=== PATIENT | male | born 1975 | race Hispanic/Latino ===

== ENCOUNTER 2019-07-19 16:08 | Observation (INO) | payer SELFPAY ==
--- NOTE | 2019-07-19 16:28 | RAD ---
2 view chest: [07/19/2019] Comparison:08/29/2015 HISTORY: Epigastric pain FINDINGS: Heart and mediastinal contours are grossly unremarkable. No pneumothorax or pleural fluid. No focal consolidation or alveolar edema. IMPRESSION: No acute findings.
[2019-07-19 17:09] LABS: #Lymphocytes 0.9 thou/uL (1.20-3.40); #Monocytes 0.5 thou/uL (0.11-0.59); #Neutrophils 4.7 thou/uL (1.40-6.50); %Basophils 0.7 % (0.0-1.0); %Eosinophils 0.3 % (0.0-10.0); %Lymphocytes 14.8 % (21.0-51.0); %Monocytes 7.6 % (0.0-10.0); %Neutrophils 76.6 % (42.0-75.0); Hemoglobin 14.3 g/dL (14.0-18.0); Mean Corpuscular HGB CONC 35.7 g/dL (32.0-36.0); Mean Corpuscular Hemoglobin 31.9 pg (27.0-31.0); Mean Corpuscular Volume 89.5 fL (78.0-98.0); Mean Platelet Volume 7.5 fL (7.4-10.4); Platelet Count 286 thou/uL (130-400); RBC Distribution Width 11.1 % (11.5-14.5); Red Blood Cell (RBC) Count 4.48 mill/uL (4.70-6.10); White Blood Cell (WBC) Count 6.1 thou/uL (4.8-10.8)
[2019-07-19 17:30] LABS: ALT (SGPT) 77 U/L (8-55); AST (SGOT) 75 U/L (5-34); Albumin 4.5 g/dL (3.5-5.0); Alkaline Phosphatase 94 U/L (40-110); Anion Gap 17 mmol/L (10-20); BUN (Urea Nitrogen) 6 mg/dL (8.9-20.6); Bilirubin, Total 0.5 mg/dL (0.2-1.2); CK (CPK) 1466 U/L (30-200); Calc. Creatinine Clearance 0 mL/min (70-130); Calcium 8.6 mg/dL (7.8-10.44); Carbon Dioxide 23 mmol/L (22-29); Chloride 92 mmol/L (98-107); Estimated GFR-MDRD Greater than 90; Globulin 2.6 g/dL (2.4-3.5); Glucose 124 mg/dL (70-105); Lipase 10 U/L (8-78); Potassium 3.2 mmol/L (3.5-5.1); Protein, Total 7.1 g/dL (6.0-8.3); Sodium 129 mmol/L (136-145)
[2019-07-19 17:40] LABS: Acetaminophen Less than 6.0 mcg/mL (10.0-30.0); Alcohol 138 mg/dL (Less than 10); Salicylate Less than 8.0 mg/dL (15.0-30.0)
[2019-07-19] MEDS ORDERED: Morphine 4 MG/ML VIAL ONE ×2 (17:43→18:57)
--- NOTE | 2019-07-19 18:31 | CT ---
CT ABDOMEN AND PELVIS WITH IV CONTRAST 07/19/2019 CLINICAL INFORMATION: Abdominal pain/pancreatitis. Patient has right upper quadrant and epigastric abdominal pain with vomi ting. COMPARISON: None. Technique: Multiple contiguous axial CT images are obtained through the abdomen and pelvis with IV contrast. Cor onal reformatted images are provided. FINDINGS: Lower Chest: Few calcified granulomata are seen in the right middle lobe. There is also a noncalcifie d 5 mm pulmonary nodule seen in the right middle lobe. The left lung base is clear. Vessels: Abdominal aorta is normal in caliber without evidence of an aortic dissection. Abdomen: Portal vein:Patent Gallbladder: Within normal limits for CT imaging. Liver: within normal limits. Spleen: within normal limits. Pancreas: within normal limits. Adrenals: within normal limits. Kidneys: within normal limits. Bowel: Normal caliber. Appendix: The appendix is visualized and normal in caliber. Peritoneum: No ascites or free air; no fluid collection. Mesentery and Retroperitoneum: No enlarged mesenteric or retroperitoneal lymph nodes. Abdominal Wall: within normal limits. Pelvis: Reproductive Organs: No pelvic masses. Pelvis within normal limits. Bladder: within normal limits. Bones: within normal limits. IMPRESSION: 1. Noncalcified 5 mm pulmonary nodule right middle lobe which is too small to characterize. Calcified granulomata are also seen in the right middle lobe. 2. No acute findings in the abdomen or pelvis.
[2019-07-19] MEDS ORDERED: Lorazepam 2 MG/ML VIAL ONE (19:31)
[2019-07-19] MEDS ORDERED: chlordiazePOXIDE HCl 25 MG CAP ONE (19:31)
[2019-07-19 19:51] LABS: Bacteria/HPF None Seen HPF (None Seen); Bilirubin Negative (Negative); Blood, Urine Trace (Negative); Clarity Clear (Clear); Glucose, Urine (Dipstick) Normal (Negative); Leukocyte Negative Leu/uL (Negative); Nitrite Negative (Negative); Protein, Urine (Dipstick) Negative (Neg-Trace); RBC/HPF 0-3 HPF (0-3); Squamous Epithelial None Seen HPF (0-3); Urobilinogen Normal mg/dL (Less than 2); WBC/HPF 0-3 HPF (0-3)
--- NOTE | 2019-07-19 20:13 | ULT ---
RIGHT UPPER QUADRANT ULTRASOUND 07/19/19 COMPARISON: None. HISTORY: Right upper quadrant pain, assess for acute cholecystitis. TECHNIQUE: Multiplanar sanz scale sonographic imaging of the right upper quadrant obtained. FINDINGS: Imaged portions of the pancreas appear grossly unremarkable. Fluid is seen within the stomach. Hepati c parenchyma is mildly heterogeneous and echogenic which may signify hepatocellular disease, such as hepatic steatosis. No gallbladder wall thickening or pericholecystic fluid. No gallstones are noted. The associate team physician reports a negative Curry's sign. The right kidney measures 10.9 cm in craniocaudal dimensions and demonstrates no stones, hydronephros is or mass. Common bile duct measures 3 mm, within normal limits. IMPRESSION: No evidence for cholelithiasis, cholecystitis or biliary dilatation. POS: NICOLE
[2019-07-19] MEDS ORDERED: Multivitamins, Adult 10 ML, Thiamine HCl 100 MG, Folic Acid 1 MG in Dextrose 5 %-0.45 %... IV SCH (21:15)
[2019-07-19] MEDS ORDERED: Pantoprazole 80 MG, Admixture Fee 1 EACH in Sodium Chloride 0.9% 100 ML IVPB SCH (21:15)
[2019-07-19] MEDS ORDERED: Ondansetron PF 4 MG/2 ML Vial ONE (22:11)
[2019-07-19] MEDS ORDERED: Diazepam 5 MG TAB PO PRN (23:24)
[2019-07-19] MEDS ORDERED: Diazepam 5 MG TAB PO SCH (23:30)
[2019-07-19] MEDS ORDERED: Dextrose 5 %-0.45 % NaCl 1,000 ML IV SCH (23:30)
[2019-07-19 23:44] VITALS: BMI 25.2
[2019-07-20] MEDS ORDERED: Diazepam 5 MG TAB PO PRN ×2 (04:00→09:09)
[2019-07-20] MEDS ORDERED: Morphine 2 MG/ML SYRINGE SLOW IVP PRN (04:25)
[2019-07-20] MEDS ORDERED: Ondansetron PF 4 MG/2 ML Vial IVP PRN (04:28)
--- NOTE | 2019-07-20 06:11 | PDOC.HHP ---
Hospitalist HPI - History of Present Illness abdominal pain History of Present Illness: This is a 44 year old male with history of alcoholism, GERD who presented to the ER with abdominal pain for the past few days and drinking too much. THe patient states that he has been having 7/10 epigastric pain for the past four days and believes it is related to his alcohol intake. He describes the pain as sharp and burning and non-radiating. It is worst with eating food, especially spicy food. He has nausea, but denies vomiting. He denies fevers, chills, constipation, diarrhea, chest pain or shortness of breath. He does report some dysuria and frequency but no urgency. The patient states he has been drinking a 6 pack of alcohol on a daily basis for years. He has had withdrawal from alcohol in the past and currently has some tremors. He also smokes 1-2 cigarettes daily and uses cocaine once a week. He has been [facility] in the past and is interested in possibly going to a rehab again. He takes cimetidine on a regular basis but has never had an EGD before. The patient also complains of swelling in his arms and hands that started yesterday before coming to the hospital and feels it is difficult to maneuver his fingers well due to the swelling. ED Course: In the ER, the patient had an EKG which showed sinus tachycardia. Labs showed a sodium of 129, potassium of 3.2, AST 75, ALT 77, and CK of 1466, plasma alcohol 138. Lipase was normal. THe patient had an abdominal ultrasound which showed possibly fatty liver but no acute disease. Chest X ray showed no acute disease. CT abdomen 5 mm pulmonary nodule right middle lobe, calcified granulomata in the right middle lobe but no acute disease. He was given 4 mg IV zofran, 80 mg IV protonix and placed on a protonix drip. He was also given a banana bag, 2 mg ativan, 50 mg librium, 8 mg morphine and 2L IV infusion. He was placed on D5 1/2 NS. Hospitalist ROS - Review of Systems Constitutional: denies: fever, chills ENT: denies: ear pain, mouth swelling Respiratory: denies: cough, dry, shortness of breath Cardiovascular: denies: chest pain, palpitations, orthopnea Gastrointestinal: reports: nausea, abdominal pain, constipation. denies: vomiting, diarrhea Genitourinary: reports: dysuria, frequency Musculoskeletal: reports: hand pain Skin: denies: rash, lesions Neurological: denies: weakness, numbness - Medication Medications: Active Medications Generic Name Dose Route Start Last Admin Trade Name Freq PRN Reason Stop Dose Admin Morphine Sulfate 2 mg 07/20/19 04:25 07/20/19 04:37 Morphine SLOW IVP 2 mg Q4H PRN Administration Breakthrough Pain Sodium Chloride 10 ml 07/19/19 23:23 07/20/19 04:38 Flush - Normal Saline IVF 10 ml PRN PRN Administration Saline Flush Hospitalist History - Past Medical History Gastrointestinal: reports: GERD - Social History Smoking Status: Smokes 0-10 cigs daily (1-2 cigarettes daily) Alcohol: reports: Heavy (6 packs daily) Living Situation: Other (lives with cousins) Occupation: He works as a information writer Other Social History: Born in [facility]. Has three sisters and five brothers. His moved back to [facility] with his son. He lives with his cousins in [place], and has been here for twenty years. - Exam General Appearance: NAD, awake alert Eye: PERRL, anicteric sclera ENT: normocephalic atraumatic, no oropharyngeal lesions Neck: supple, symmetric, no JVD, no thyromegaly Heart: RRR, no murmur, no gallops, no rubs Respiratory: CTAB, no wheezes, no rales, no ronchi Extremities: no cyanosis Extremities - other findings: swelling of bilateral hands Skin: normal turgor, no lesions, no rashes Neurological: cranial nerve grossly intact, normal sensation to touch, no focal deficits, no new deficit Musculoskeletal: normal tone, normal strength, no muscle wasting Musculoskeletal - other findings: swelling of arms and hands bilaterally Psychiatric: normal affect, normal behavior, A&O x 3, oriented to person Hospitalist Results - Labs Result Diagrams: 07/19/19 16:53 07/19/19 16:53 Lab results: WBC 6.1 thou/uL (4.8-10.8) 07/19/19 16:53 Hgb 14.3 g/dL (14.0-18.0) 07/19/19 16:53 Hct 40.1 % (42.0-52.0) L 12/26/19 16:53 MCV 89.5 fL (78.0-98.0) 07/19/19 16:53 Plt Count 286 thou/uL (130-400) 07/19/19 16:53 Neutrophils % 76.6 % (42.0-75.0) H 07/19/19 16:53 Sodium 129 mmol/L (136-145) L 07/19/19 16:53 Potassium 3.2 mmol/L (3.5-5.1) L 07/19/19 16:53 Chloride 92 mmol/L (98-107) L 07/19/19 16:53 Carbon Dioxide 23 mmol/L (22-29) 07/19/19 16:53 BUN 6 mg/dL (8.9-20.6) L 07/19/19 16:53 Creatinine 0.67 mg/dL (0.7-1.3) L 07/19/19 16:53 Glucose 124 mg/dL (70-105) H 07/19/19 16:53 Calcium 8.6 mg/dL (7.8-10.44) 07/19/19 16:53 Total Bilirubin 0.5 mg/dL (0.2-1.2) 07/19/19 16:53 AST 75 U/L (5-34) H 07/19/19 16:53 ALT 77 U/L (8-55) H 07/19/19 16:53 Alkaline Phosphatase 94 U/L (40-110) 07/19/19 16:53 Creatine Kinase 1466 U/L (30-200) H 07/19/19 16:53 Troponin I Less than 0.010 ng/mL (< 0.028) 07/19/19 16:53 Serum Total Protein 7.1 g/dL (6.0-8.3) 07/19/19 16:53 Albumin 4.5 g/dL (3.5-5.0) 07/19/19 16:53 Lipase 10 U/L (8-78) 07/19/19 16:53 Urine Ketones Negative mg/dL (Negative) 07/19/19 19:38 Urine Blood Trace (Negative) A 07/19/19 19:38 Urine Nitrite Negative (Negative) 07/19/19 19:38 Ur Leukocyte Esterase Negative Himanshu/uL (Negative) 07/19/19 19:38 Urine RBC 0-3 HPF (0-3) 07/19/19 19:38 Urine WBC 0-3 HPF (0-3) 07/19/19 19:38 Ur Squamous Epith Cells None Seen HPF (0-3) 07/19/19 19:38 Urine Bacteria None Seen HPF (None Seen) 07/19/19 19:38 - EKG Interpretation EKG: sinus tachycardia Hospitalist H&P A/P - Plan Plan: This is a 44 year old male who presented with abdominal pain, heavy alcohol use and withdrawal #Abdominal pain - possibly secondary to gastritis versus ulcer #GERD - will continue protonix 40 mg IV bid - consult GI for EGD evaluation to rule out ulcer - morphine prn for pain #Hyponatremia - sodium 129 - switch to D5 NS, check serum and urine osmolarity, repeat BMP #Hypokalemia - potassium 3.2, will replace with IV potassium #Alcoholism #Cocaine abuse - continue ASE Protocol - s/p banana bag - continue IV fluids, thiamine, folate - diazepam q4 hour prn - social work/case management consult #Transaminitis - likely from alcoholism - AST 77, ALT 76, continue to trend #Rhabdomyolysis - CK level 1466, continue IV fluids and repeat CK #Right middle lobe pulmonary nodule - [address] abdomen, outpatient follow up #Arm and hand swelling - possibly from kidney injury - continue IV fluids - check bilateral hand X rays GI prophylaxis : protonix drip DVT prophylaxis: ambulation Code status: full code
[2019-07-20] MEDS ORDERED: Sodium Chloride 0.9% (PF) 10 ML VIAL FS PRN (06:14)
[2019-07-20] MEDS ORDERED: Potassium Chloride 20 MEQ TAB PO SCH (06:30)
[2019-07-20 06:55] LABS: Hemoglobin 13.2 g/dL (14.0-18.0); Mean Corpuscular HGB CONC 35.1 g/dL (32.0-36.0); Mean Corpuscular Hemoglobin 31.5 pg (27.0-31.0); Mean Corpuscular Volume 89.7 fL (78.0-98.0); Mean Platelet Volume 7.2 fL (7.4-10.4); Platelet Count 270 thou/uL (130-400); RBC Distribution Width 11.1 % (11.5-14.5); Red Blood Cell (RBC) Count 4.18 mill/uL (4.70-6.10); White Blood Cell (WBC) Count 8.9 thou/uL (4.8-10.8)
[2019-07-20 07:35] LABS: ALT (SGPT) 60 U/L (8-55); AST (SGOT) 50 U/L (5-34); Albumin 4.1 g/dL (3.5-5.0); Alkaline Phosphatase 95 U/L (40-110); Anion Gap 14 mmol/L (10-20); BUN (Urea Nitrogen) 5 mg/dL (8.9-20.6); CK (CPK) 759 U/L (30-200); Calc. Creatinine Clearance 121 mL/min (70-130); Calcium 7.3 mg/dL (7.8-10.44); Carbon Dioxide 24 mmol/L (22-29); Chloride 91 mmol/L (98-107); Estimated GFR-MDRD Greater than 90; Globulin 2.5 g/dL (2.4-3.5); Glucose 120 mg/dL (70-105); Potassium 3.1 mmol/L (3.5-5.1); Protein, Total 6.6 g/dL (6.0-8.3); Sodium 126 mmol/L (136-145)
--- NOTE | 2019-07-20 07:45 | RAD ---
EXAM: 3 views of the right hand COMPARISON: None HISTORY: Hand swelling FINDINGS: 3 views of the right hand shows no evidence of acute fracture or dislocation. No degenerati ve changes are seen. No soft tissue swelling is present. IMPRESSION: Unremarkable exam.
--- NOTE | 2019-07-20 07:48 | RAD ---
Radiograph left hand 3 views: HISTORY: 44-year-old male with hand swelling FINDINGS: There is deformity of the third distal tuft, which is poorly visualized because of flexion at the thi rd DIP. No other osseous abnormality is visualized in the rest of the hand. The joints appear normal. Diffuse soft tissue swelling. No periostitis or permeative lesion. IMPRESSION: 1. Deformity at third distal tuft, incompletely visualized. Uncertain whether this is chronic or acut e. 2. No other osseous abnormality. 3. Diffuse soft tissue edema.
[2019-07-20] MEDS: Potassium Chloride 10 MEQ in Premix Bag 1 BAG IVPB SCH ×5 (08:26→23:47)
[2019-07-20] MEDS: Dextrose 5 % And 0.9 % NaCl 1,000 ML IV SCH ×2 (08:27→19:18)
[2019-07-20] MEDS: Pantoprazole 40 MG VIAL IVP SCH ×2 (08:27→20:26)
[2019-07-20] MEDS ORDERED: Multivitamin W/ Minerals 1 TAB PO SCH (09:00)
[2019-07-20] MEDS ORDERED: Thiamine 100 MG TAB PO SCH (09:00)
[2019-07-20] MEDS ORDERED: Magnesium Oxide 400 MG TAB PO SCH (09:00)
[2019-07-20] MEDS ORDERED: Folic Acid 1 MG TAB PO SCH (09:00)
[2019-07-20] MEDS ORDERED: Thiamine HCl 200 MG/2 ML VIAL IM SCH ×2 (09:15→10:45)
[2019-07-20] MEDS ORDERED: Diazepam 5 MG TAB PO SCH ×2 (09:15→10:45)
[2019-07-20] MEDS ORDERED: PROPOFOL 200 MG/20 ML VIAL ONE (11:28)
--- NOTE | 2019-07-20 19:55 | CON ---
DATE OF CONSULTATION: 07/20/2019 REASON FOR CONSULTATION: Abdominal pain. HISTORY OF PRESENT ILLNESS: Lauro Queen is a very pleasant 44-year-old male with abdominal pain over the last 4 to 5 days. The patient does drink heavily. He is drinking one 6-pack of beer every day. However, over the holidays, he says he drank a bottle of whisky a couple of days ago. The pain is over the epigastric area and burning in nature. He had nausea, but no vomiting. Apparently, he has had chronic alcohol intake over the years. Does drink mostly beer every day, but he also drank whisky off and on. Apparently, because of holidays, he drank a whole bottle of whisky as per the patient. The pain is over the epigastric area. The pain was not worse yesterday, but today the pain is not less than before. He actually appears very comfortable. The pain is not as bad as before. He has had no bloody stool. No hematochezia. No melena. The patient has no prior history of any peptic ulcer. There is history of acid reflux and does take [id number] medications off and on. Since admission, the patient has had abdominal CAT scan and also abdominal sonogram. Both are reported to be negative. Serum lipase is normal. The patient also complains of some pain over the hands before he came to the hospital. There is no history of recent trauma. No relevant symptoms. ALLERGIES: NONE. SOCIAL HISTORY: The patient is . He smokes one-half packet of cigarettes per day. Alcohol one 6-pack a day, but drinks also whisky off and on. Apparently, in the holidays, he drank a bottle of whisky a couple of days ago. Works as a master tax advisor. MEDICAL ILLNESSES: None except for acid reflux. PAST SURGICAL HISTORY: No major surgeries. FAMILY HISTORY: Nonrelevant. SYSTEM REVIEW: Ten-point system review, unremarkable. PHYSICAL EXAMINATION: GENERAL: Appears very comfortable, in no acute distress. He is awake, alert, and communicative. VITAL SIGNS: Afebrile, pulse is 87, blood pressure 120/76. HEENT: Conjunctivae are clear. NECK: Supple. No adenitis or thyromegaly noted. CARDIOVASCULAR SYSTEM: First and second heart sounds heard. LUNGS: Clear to auscultation. ABDOMEN: Soft. Abdomen is nondistended. He is minimally tender over the epigastric area. There is no rebound or guarding. No organomegaly. No masses. Bowel sounds normal. EXTREMITIES: Reveal no edema. LABORATORY DATA: CBC; WBC today 8900, hemoglobin 13.2, hematocrit 31.5, MCV 89.7, platelet count 270,000, polymorphs 76, lymphocytes 14. Chemistry panel shows elevated LFTs. AST 75, ALT 77, alkaline phosphatase 99. CK is 1466. Otherwise, he is hyponatremic. Sodium 126, potassium 3.1, chloride 91, bicarb is 24, BUN is 5, creatinine 0.61, glucose 120, calcium 7.3. LFTs today, AST down to 50, ALT 60, alkaline phosphatase 95, total protein 6.6, albumin 4.5. Lipase is normal at 10. IMPRESSION: 1. Abdominal pain, most likely from alcoholic gastritis. He does admit to drinking alcohol on a regular basis. He drinks 6-pack of beer every day and also drank a bottle of whisky couple of days ago. Abdominal sonogram and abdominal CAT scan are negative. He also has no evidence of pancreatitis. Based on the history, I believe most likely he has a gastritis with alcohol abuse, possibly . 2. Hyponatremia, represents he probably needs free water replacement. 3. Abnormal LFTs consistent with alcoholic liver disease. RECOMMENDATION: 1. Correction of hyponatremia and hypokalemia. 2. IV fluids. 3. EGD later on today and I will make further recommendation. Job ID: [id number]
--- NOTE | 2019-07-20 21:20 | OP ---
DATE OF PROCEDURE: 07/20/2019 OPERATIVE PROCEDURE: Esophagogastroduodenoscopy. PREOPERATIVE DIAGNOSES: 44-year-old Latin-Mex[place] male with abdominal pain and nausea for the last several days. There is history of alcohol abuse. He is undergoing EGD. POSTOPERATIVE DIAGNOSES: 1. Normal esophageal mucosa, no esophagitis seen. 2. Normal GE junction. 3. Mild mucosal hyperemia, proximal stomach. No ulcerations or any gastritis seen. 4. Normal duodenum. DESCRIPTION OF PROCEDURE: The patient was placed on his left lateral position and was given sedation by Anesthesia Department. A Pentax video gastroscope under direct vision passed down the oropharynx, past the GE junction into the stomach , and subsequently into the descending duodenum. The esophageal mucosa appeared completely normal. GE junction, no pathology. Upon entering the stomach, the scope was retroflexed to visualize the fundus and cardia. No pathology seen. The gastric mucosa for gastric body is mildly hyperemic. No ulcerations or any gastritis seen. The incisura angularis, gastric antrum, no lesion seen. The duodenal bulb, descending duodenum, no lesion seen. Endoscopic impression, normal exam. The patient most likely has gastric irritation from too much alcohol intake. RECOMMENDATIONS: 1. Clear liquid diet. 2. Advance diet as tolerated. We will consider discharge home tomorrow on PPI. Job ID: [id number] [facility]
[2019-07-21] MEDS: Dextrose 5 % And 0.9 % NaCl 1,000 ML IV SCH ×2 (02:11→12:03)
[2019-07-21] MEDS ORDERED: Diazepam 5 MG TAB PO PRN (04:00)
[2019-07-21 06:31] LABS: Eosinophils 3 % (0-10); Hemoglobin 14.5 g/dL (14.0-18.0); Lymphocytes 32 % (21-51); MDiff Complete? YES; Mean Corpuscular Hemoglobin 31.9 pg (27.0-31.0); Mean Corpuscular Volume 91.1 fL (78.0-98.0); Mean Platelet Volume 7.7 fL (7.4-10.4); Monocytes 12 % (0-10); Neutrophil 53 % (42-75); Platelet Count 238 thou/uL (130-400); Platelet Morphology Comment Appears Adequate; RBC Distribution Width 11.3 % (11.5-14.5); RBC Morphology Normal; Red Blood Cell (RBC) Count 4.54 mill/uL (4.70-6.10); White Blood Cell (WBC) Count 3.6 thou/uL (4.8-10.8)
[2019-07-21 06:34] LABS: Anion Gap 10 mmol/L (10-20); BUN (Urea Nitrogen) 8 mg/dL (8.9-20.6); Calc. Creatinine Clearance 107 mL/min (70-130); Calcium 8.3 mg/dL (7.8-10.44); Carbon Dioxide 24 mmol/L (22-29); Chloride 107 mmol/L (98-107); Estimated GFR-MDRD Greater than 90; Glucose 96 mg/dL (70-105); Potassium 3.8 mmol/L (3.5-5.1); Sodium 137 mmol/L (136-145)
[2019-07-21] MEDS ORDERED: Multivitamin W/ Minerals 1 TAB PO SCH (09:00)
[2019-07-21] MEDS ORDERED: Folic Acid 1 MG TAB PO SCH (09:00)
[2019-07-21] MEDS ORDERED: Magnesium Oxide 400 MG TAB PO SCH (09:00)
[2019-07-21] MEDS ORDERED: Thiamine 100 MG TAB PO SCH (09:00)
[2019-07-21] MEDS: Pantoprazole 40 MG VIAL IVP SCH (09:32)
[2019-07-21 13:01] VITALS: BP 122/87
[2019-07-21 13:02] VITALS: TEMP 98.2
--- NOTE | 2019-07-21 16:17 | DIS ---
DATE OF ADMISSION: 07/19/2019 DATE OF DISCHARGE: 07/21/2019 PANEL INSTALLER: Dr. Howard of Gastroenterology. PROCEDURES PERFORMED: EGD which was negative. MEDICATIONS: Reconciled at discharge. Home medication to discontinue is Zantac. New medications: 1. Folic acid 1 mg daily. 2. Magnesium oxide 400 mg daily. 3. Multivitamin daily. 4. Omeprazole 40 mg once daily, prescription provided for 30 tablets, further refills from primary care. 5. Thiamine 100 mg daily. FINAL DIAGNOSES: 1. Abdominal pain attributed to alcohol to gastritis. 2. Hyponatremia, resolved. 3. Hypokalemia, resolved. 4. Reported history of alcoholism and cocaine abuse. 5. Rhabdomyolysis. 6. Transaminitis attributed to alcohol use. 7. Tobacco abuse. 8. Right middle lobe pulmonary nodule, needs outpatient evaluation. 9. Arm and hand swelling. 10. Questionable x-ray of the left hand, requires further evaluation as an outpatient. HISTORY OF PRESENT ILLNESS: Mr. Queen is a 44-year-old male, who presented to the emergency room with abdominal pain in the epigastric area that he rated 7/10 in intensity. He reported the use of 6 pack of alcohol daily, tobacco use of 1 to 2 cigarettes daily and he had been taking Zantac as an outpatient. HOSPITAL COURSE: The patient was evaluated by Gastroenterology and underwent EGD yesterday, which was negative. His diet was advanced, his pain is down to 2/10 without medication, and he is overall feeling well. He did receive an IV PPI, and his diet was advanced after the EGD. Overnight until today, the patient is reporting feeling better. He is tolerating p.o., pain controlled, and meets criteria for discharge to home. He will need follow up with the primary care provider, and to maintain on daily PPI. I discussed with him the recommendation of avoiding alcohol, avoiding tobacco, and avoiding all anti-inflammatory medications such as Advil, ibuprofen, Aleve and naproxen. This was through the hospital aerial survey technician system. He was monitored for alcohol withdrawal by ASE protocol which was negative. PHYSICAL EXAMINATION: VITAL SIGNS: On day of discharge, blood pressure mean 121/84, temperature 98, pulse 67, respirations 13, and saturations 97% on room air. GENERAL: Awake, alert, responsive, in no apparent distress. Able to speak in full sentences. LUNGS: Clear to auscultation bilateral. No audible wheezing, rhonchi, or rales. HEART: Normal S1 and S2. Regular rate and rhythm. No significant murmurs. ABDOMEN: Soft. Present bowel sounds. Nontender, nondistended. BAXTER FINDINGS AND TEST RESULTS: Renal panel today, 3.6, 14.5, 41.4, 238. Renal panel; 137, 3.8, 107, 24, 8, 0.65, 96. On yesterday, his sodium was 126, potassium 3.1, and on the , sodium 129, potassium 3.2. AST 50, ALT 60, alkaline phosphatase 95. CK yesterday 759, the day before it was 1466. Total protein 6.6. Albumin 4.1. Urinalysis on admission was negative. Salicylates negative. Tylenol negative and plasma alcohol on admission 138. Hand x-ray on July 20, unremarkable exam on the right side. Hand x-ray on the left side, deformity at the third distal tuft, incompletely visualized, uncertain if this is chronic or acute, no other osseous abnormality. Abdominal ultrasound on 07/19, no evidence for cholelithiasis, cholecystitis, or biliary dilatation. CT abdomen and pelvis on July 19 shows a noncalcified 5-mm pulmonary nodule of the right middle lobe. Calcified granulomatous seen in the right middle lobe, no other acute findings. Chest x-ray on 07/19, no acute findings. DIET: Avoiding spicy foods, avoiding alcohol and tobacco, otherwise regular. ACTIVITY: As tolerated. Reviewed with patient this hospitalization, the recommendations above, as well as being on a daily PPI, the importance of followup. There were no questions or further needs at time of evaluation. DISCHARGE DISPOSITION: Home. FOLLOW UP: 1. With a Primary Care Physician to review this hospitalization, and follow up the pulmonary nodule and abnormal hand xray. CODE STATUS: Full. TIME SPENT: Coordinating discharge total time is 30 minutes. Job ID: [id number] [id number]
== END 2019-07-21 13:07 | disposition home or self-care (01) ==
LOC: ERS 16:08 → 2SW 23:32
PROVIDERS: ADMIT Emergency Medicine; ATTEND Emergency Medicine
PROC: 0DJ08ZZ Inspection of Upper Intestinal Tract, Via Natural or Artificial Opening Endoscopic (ICD-10-PCS; principal; 2019-07-21)
DX: K29.20 Alcoholic gastritis without bleeding (principal); K21.9 Gastro-esophageal reflux disease without esophagitis; F17.210 Nicotine dependence, cigarettes, uncomplicated; E87.1 Hypo-osmolality and hyponatremia; E87.6 Hypokalemia; F10.20 Alcohol dependence, uncomplicated; F14.10 Cocaine abuse, uncomplicated; M62.82 Rhabdomyolysis; R91.1 Solitary pulmonary nodule
CPT/HCPCS: 36415; 71046; 74177; 76705; 80048; 80053; 80307; 81003; 81015; 82550; 83690; 83930; 83935; 84443; 84484; 85007; 85025; 85027; 96361; 96365; 96366; 96367; 96375; 96376; C9113; G0378; J2060; J2270; J2405; J2704; J3411; J3475; J3480; J3490; J7042